=== PATIENT | male | born 1955 | race Caucasian/White ===

== ENCOUNTER → 2020-09-05 | Outpatient (CLI) | payer OTHER ==
[~2020-09-05] MED LIST: LISI-538 PO; ROSU20TA5 PO; [UNRECOGNIZED DRUG - CODE] PO
== END ==
LOC: M LABSMTC 11:32
PROVIDERS: ATTEND Anesthesiology
DX: Z01.812 Encounter for preprocedural laboratory examination (principal); Z20.828 Contact with and (suspected) exposure to other viral communicable diseases

== ENCOUNTER 2020-09-09 06:43 | Day surgery (SDC) | payer OTHER ==
[~2020-09-09] VITALS: Ht 172.7 cm; Wt 83.5 kg
[2020-09-09] MEDS ORDERED: NS 1,000 ML IV ONE (07:00)
[2020-09-09] MEDS ORDERED: propofoL 200 MG/20 ML VIAL As Ordered ONE (07:03)
[2020-09-09] MEDS ORDERED: LIDOCAINE 2% 100MG/5ML SDV (FOR ANES.) As Ordered ONE (07:03)
[2020-09-09] MEDS ORDERED: LISI40TA PO (07:20)
[2020-09-09] MEDS ORDERED: AMLO1TAB24 PO (07:22)
[2020-09-09] MEDS ORDERED: LABETALOL 100MG/20ML VIAL As Ordered ONE (07:45)
--- NOTE | 2020-09-09 07:56 | ROOR ---
Patient Name: Siva Benoit Procedure Date: 09/09/2020 7:33 AM Date of : 1955 Age: 64 Room: [facility] Gender: Male Note Status: Finalized Procedure: Total Colonoscopy to Cecum Indications: Screening for colorectal malignant neoplasm Providers: Fabián Gagnon MD Referring MD: AUSTYN METZGER Requesting Provider: Medicines: Monitored Anesthesia Care Complications: No immediate complications. Procedure: Pre-Anesthesia Assessment: - The heart rate, respiratory rate, oxygen saturations, blood pressure, adequacy of pulmonary ventilation, and response to care were monitored throughout the procedure. The Colonoscope was introduced through the anus and advanced to the cecum, identified by appendiceal orifice and ileocecal valve. The colonoscopy was performed without difficulty. The patient tolerated the procedure well. The quality of the bowel preparation was excellent. Findings: The perianal and digital rectal examinations were normal. Non-bleeding internal hemorrhoids were found during retroflexion. The hemorrhoids were small and Grade I (internal hemorrhoids that do not prolapse). No other significant abnormalities were identified in a careful examination of the remainder of the colon. The exam was otherwise without abnormality on direct and retroflexion views. Impression: - Non-bleeding internal hemorrhoids. - The examination was otherwise normal on direct and retroflexion views. - No specimens collected. - The exam was otherwise normal to the cecum. Recommendation: - Patient has a contact number available for emergencies. The signs and symptoms of potential delayed complications were discussed with the patient. Return to normal activities tomorrow. Written discharge instructions were provided to the patient. - High fiber diet. - Discharge patient to home. - Continue present medications. - Repeat colonoscopy in 10 years for screening purposes. - Return to referring physician. - The findings and recommendations were discussed with the patient. Procedure Code(s): --- Professional --- 50621, Colonoscopy, flexible; diagnostic, including collection of specimen(s) by brushing or washing, when performed (separate procedure) Diagnosis Code(s): --- Professional --- Z12.11, Encounter for screening for malignant neoplasm of colon K64.0, First degree hemorrhoids CPT copyright 2019 [employer]. All rights reserved. The codes documented in this report are preliminary and upon test cell technician review may be revised to meet current compliance requirements. Fabián Gagnon MD Fabián Gagnon MD 09/09/2020 7:55:43 AM Electronically signed by Fabián Gagnon MD Number of Addenda: 0 Note Initiated On: 09/09/2020 7:33 AM Estimated Blood Loss: Estimated blood loss: none.
== END 2020-09-09 08:40 | disposition home or self-care (01) ==
LOC: M OPP 06:43
PROVIDERS: ATTEND Internal Medicine Gastroenterology
DX: Z12.11 Encounter for screening for malignant neoplasm of colon (principal); K64.0 First degree hemorrhoids; I10 Essential (primary) hypertension; E78.5 Hyperlipidemia, unspecified; R12 Heartburn; Z86.718 Personal history of other venous thrombosis and embolism; Z86.59 Personal history of other mental and behavioral disorders; Z91.040 Latex allergy status; Z79.82 Long term (current) use of aspirin; Z79.899 Other long term (current) drug therapy

== ENCOUNTER → 2021-11-19 | Outpatient (CLI) | payer MEDICARE, OTHER ==
[~2021-11-19] MED LIST changes: +AMLO1TAB24 PO; -LISI-538 PO; +LISI20TA33 PO; +LISI40TA4 PO
[2021-11-19 15:33] LABS: BLOOD UREA NITROGEN 17 MG/DL (7-18); CALCIUM LEVEL 9.2 MG/DL (8.8-10.2); CARBON DIOXIDE LEVEL 25 MEQ/L (21-32); CHLORIDE LEVEL 103 MEQ/L (98-107); CREATININE FOR GFR 0.99 MG/DL (0.70-1.30); GLOMERULAR FILTRATION RATE > 60.0 (>49); GLUCOSE, FASTING 97 MG/DL (70-100); POTASSIUM SERUM 4.6 MEQ/L (3.5-5.1); SODIUM LEVEL 132 MEQ/L (136-145)
== END ==
LOC: M LAB 13:55
PROVIDERS: ATTEND Physician Assistant
DX: I65.22 Occlusion and stenosis of left carotid artery (principal); E87.5 Hyperkalemia

== ENCOUNTER → 2022-02-18 | Outpatient (CLI) | payer MEDICARE, OTHER ==
[2022-02-18 12:39] LABS: BLOOD UREA NITROGEN 14 MG/DL (7-18); CREATININE FOR GFR 0.96 MG/DL (0.70-1.30); GLOMERULAR FILTRATION RATE > 60.0 (>49)
== END ==
LOC: M LAB 11:32
PROVIDERS: ATTEND Surgery Vascular Surgery
DX: I65.23 Occlusion and stenosis of bilateral carotid arteries (principal)

== ENCOUNTER → 2022-02-23 | Outpatient (CLI) | payer MEDICARE, OTHER ==
[~2022-02-23] MED LIST changes: +ISOVUE-370 76% 100ML VIAL As Ordered ONE
== END ==
LOC: M RAD 10:18
PROVIDERS: ATTEND Physician Assistant
DX: I65.23 Occlusion and stenosis of bilateral carotid arteries (principal)
CPT/HCPCS: 70498; Q9967

== ENCOUNTER 2022-03-28 11:25 | Emergency (ER) | payer MEDICARE, OTHER ==
[~2022-03-28] VITALS: Ht 172.7 cm; Wt 81.0 kg
[~2022-03-28 11:25] MED LIST changes: -ISOVUE-370 76% 100ML VIAL As Ordered ONE
[2022-03-28 12:08] LABS: BASO % 0.6 % (0.0-1.0); EOS # 0.1 10^3/uL (0.0-0.5); HEMATOCRIT 34.4 % (42.0-52.0); HEMOGLOBIN 11.5 g/dl (13.5-17.5); LYMPH # 1.1 10^3/uL (1.5-5.0); LYMPH % 14.8 % (24.0-44.0); MEAN CORPUSCULAR HEMOGLOBIN 29.6 pg (27.0-33.0); MEAN CORPUSCULAR HGB CONC 33.4 g/dl (32.0-36.5); MEAN CORPUSCULAR VOLUME 88.7 fl (80.0-96.0); MONO # 0.7 10^3/uL (0.0-0.8); MONO % 9.9 % (2.0-8.0); NEUTROPHILS # 5.2 10^3/uL (1.5-8.5); NEUTROPHILS % 73.6 % (36.0-66.0); PLATELET COUNT, AUTOMATED 236 10^3/uL (150-450); RED BLOOD COUNT 3.88 10^6/uL (4.30-6.10); WHITE BLOOD COUNT 7.1 10^3/uL (4.0-10.0)
[2022-03-28 12:19] LABS: INR 0.91; PROTHROMBIN TIME 12.6 SECONDS (12.7-14.5)
[2022-03-28 12:20] LABS: PARTIAL THROMBOPLASTIN TIME 28.4 SECONDS (25.9-37.0)
[2022-03-28 12:38] LABS: MB/CK RELATIVE INDEX 1.27 (< OR =4)
[2022-03-28] MEDS ORDERED: METO1TAB87 PO (12:45)
[2022-03-28] MEDS ORDERED: CLOP75TA2 PO (12:45)
[2022-03-28 12:46] LABS: ALBUMIN 3.9 GM/DL (3.2-5.2); ALT/SGPT 29 U/L (12-78); BILIRUBIN,DIRECT 0.1 MG/DL (0.0-0.2); BILIRUBIN,TOTAL 0.5 MG/DL (0.2-1.0); BLOOD UREA NITROGEN 12 MG/DL (7-18); CALCIUM LEVEL 9.4 MG/DL (8.8-10.2); CARBON DIOXIDE LEVEL 21 MEQ/L (21-32); CHLORIDE LEVEL 103 MEQ/L (98-107); CREATININE FOR GFR 0.96 MG/DL (0.70-1.30); FREE T4 1.05 NG/DL (0.76-1.46); GLOMERULAR FILTRATION RATE > 60.0 (>49); GLUCOSE, FASTING 114 MG/DL (70-100); LIPASE 186 U/L (73-393); NT-PRO BNP 310 PG/ML (<125); POTASSIUM SERUM 4.5 MEQ/L (3.5-5.1); SODIUM LEVEL 133 MEQ/L (136-145)
[2022-03-28] MEDS ORDERED: hydrALAZINE 20MG/ML 1ML VIAL (J0360 PER 20MG) IV STA (14:37)
[2022-03-28] MEDS ORDERED: FUROSEMIDE 40MG/4ML VIAL (J1940) IV ONE (15:30)
[2022-03-28] MEDS ORDERED: **hydrALAZINE HCL** 25 MG TAB PO ONE (15:30)
[2022-03-28 15:53] VITALS: BP 196/88
[2022-03-28 16:46] VITALS: BP 150/73
[2022-03-28] MEDS ORDERED: HYDR-3490 PO (16:46)
== END 2022-03-28 17:06 | disposition home or self-care (01) ==
LOC: EDBD 11:25 → M ED 11:25
DX: I10 Essential (primary) hypertension (principal); I25.10 Atherosclerotic heart disease of native coronary artery without angina pectoris; Z79.82 Long term (current) use of aspirin; Z79.899 Other long term (current) drug therapy; Z91.040 Latex allergy status
CPT/HCPCS: 71045; 80048; 80076; 82550; 82553; 83690; 83880; 84439; 84443; 84484; 85025; 85610; 85730; 93005; 93971; 96374; 96375; 99285; J0360; J1940

== ENCOUNTER → 2022-04-08 | Outpatient (CLI) | payer MEDICARE, OTHER ==
[~2022-04-08] MED LIST changes: +CLOP75TA2 PO; +HYDR-3490 PO; +METO1TAB87 PO
[2022-04-08 12:28] LABS: BASO # 0.1 10^3/uL (0.0-0.2); BASO % 0.6 % (0.0-1.0); EOS % 0.3 % (0.0-3.0); HEMATOCRIT 33.7 % (42.0-52.0); HEMOGLOBIN 12.1 g/dl (13.5-17.5); LYMPH # 0.9 10^3/uL (1.5-5.0); LYMPH % 10.1 % (24.0-44.0); MEAN CORPUSCULAR HEMOGLOBIN 29.7 pg (27.0-33.0); MEAN CORPUSCULAR HGB CONC 35.9 g/dl (32.0-36.5); MEAN CORPUSCULAR VOLUME 82.8 fl (80.0-96.0); MONO # 1.2 10^3/uL (0.0-0.8); MONO % 13.7 % (2.0-8.0); NEUTROPHILS # 6.7 10^3/uL (1.5-8.5); NEUTROPHILS % 74.6 % (36.0-66.0); PLATELET COUNT, AUTOMATED 291 10^3/uL (150-450); RED BLOOD COUNT 4.07 10^6/uL (4.30-6.10); WHITE BLOOD COUNT 8.9 10^3/uL (4.0-10.0)
[2022-04-08 12:45] LABS: INR 0.95; PROTHROMBIN TIME 13.1 SECONDS (12.7-14.5)
[2022-04-08 12:46] LABS: PARTIAL THROMBOPLASTIN TIME 31.1 SECONDS (25.9-37.0)
[2022-04-08 14:07] LABS: BLOOD UREA NITROGEN 18 MG/DL (7-18); CALCIUM LEVEL 9.1 MG/DL (8.8-10.2); CARBON DIOXIDE LEVEL 25 MEQ/L (21-32); CHLORIDE LEVEL 84 MEQ/L (98-107); CREATININE FOR GFR 1.09 MG/DL (0.70-1.30); GLOMERULAR FILTRATION RATE > 60.0 (>49); GLUCOSE, FASTING 93 MG/DL (70-100); SODIUM LEVEL 118 MEQ/L (136-145)
== END ==
LOC: M LAB 11:14
PROVIDERS: ATTEND Surgery Vascular Surgery
DX: I65.22 Occlusion and stenosis of left carotid artery (principal)

== ENCOUNTER → 2022-04-13 | Outpatient (CLI) | payer MEDICARE, OTHER ==
[2022-04-13 12:13] LABS: BLOOD UREA NITROGEN 8 MG/DL (7-18); CALCIUM LEVEL 8.6 MG/DL (8.8-10.2); CARBON DIOXIDE LEVEL 24 MEQ/L (21-32); CHLORIDE LEVEL 97 MEQ/L (98-107); CREATININE FOR GFR 0.84 MG/DL (0.70-1.30); GLOMERULAR FILTRATION RATE > 60.0 (>49); GLUCOSE, FASTING 102 MG/DL (70-100); POTASSIUM SERUM 4.2 MEQ/L (3.5-5.1); SODIUM LEVEL 128 MEQ/L (136-145)
== END ==
LOC: M LAB 10:07
PROVIDERS: ATTEND Surgery Vascular Surgery
DX: Z01.818 Encounter for other preprocedural examination (principal)

== ENCOUNTER → 2022-04-17 | Outpatient (CLI) | payer MEDICARE, OTHER | LOC: M LABSMTC 09:17 | PROVIDERS: ATTEND Surgery Vascular Surgery | DX: Z20.822 Contact with and (suspected) exposure to COVID-19 (principal) ==

== ENCOUNTER 2022-07-21 10:57 | Inpatient (IN) | payer MEDICARE, OTHER ==
[~2022-07-21] VITALS: Ht 172.7 cm; Wt 76.8 kg
[2022-07-21 12:25] LABS: BASO % 0.8 % (0.0-1.0); EOS # 0.1 10^3/uL (0.0-0.5); HEMATOCRIT 27.5 % (42.0-52.0); HEMOGLOBIN 9.7 g/dl (13.5-17.5); LYMPH # 0.9 10^3/uL (1.5-5.0); LYMPH % 17.4 % (24.0-44.0); MEAN CORPUSCULAR HEMOGLOBIN 29.7 pg (27.0-33.0); MEAN CORPUSCULAR HGB CONC 35.3 g/dl (32.0-36.5); MEAN CORPUSCULAR VOLUME 84.1 fl (80.0-96.0); MONO # 0.7 10^3/uL (0.0-0.8); MONO % 14.4 % (2.0-8.0); NEUTROPHILS # 3.2 10^3/uL (1.5-8.5); PLATELET COUNT, AUTOMATED 273 10^3/uL (150-450); RED BLOOD COUNT 3.27 10^6/uL (4.30-6.10)
[2022-07-21 12:38] LABS: INR 0.91; PROTHROMBIN TIME 12.5 SECONDS (12.5-14.5)
[2022-07-21 13:15] LABS: BLOOD UREA NITROGEN 18 MG/DL (9-23); CALCIUM LEVEL 9.3 MG/DL (8.3-10.6); CARBON DIOXIDE LEVEL 22 MMOL/L (20-31); CHLORIDE LEVEL 86 MMOL/L (98-107); CK-MB VALUE MASS 2.7 NG/ML (<3.6); CPK CREATINE PHOSPHOKINASE 198 U/L (46-171); CREATININE FOR GFR 1.07 MG/DL (0.70-1.30); ETHYL ALCOHOL (ETHANOL) 0.003 % (0.000-0.010); GLOMERULAR FILTRATION RATE > 60.0 (>49); GLUCOSE, FASTING 104 MG/DL (74-106); MAGNESIUM LEVEL 1.6 MG/DL (1.8-2.4); MB/CK RELATIVE INDEX 1.36 (< OR =4); POTASSIUM SERUM 3.6 MMOL/L (3.5-5.1); SODIUM LEVEL 118 MMOL/L (136-145); THYROID STIMULATING HORMONE 2.902 uIU/ML (0.55-4.78)
[2022-07-21 14:14] LABS: CK-MB VALUE MASS 4.1 NG/ML (<3.6); MB/CK RELATIVE INDEX 2.07 (< OR =4)
[2022-07-21] MEDS ORDERED: MAG SULF 1GM/100ML (MAG RUN) 1 GM in IV 1 EA IV ONE (18:15)
[2022-07-21] MEDS ORDERED: MAALOX 30 ML SUSP *UDC PO PRN (18:15)
[2022-07-21] MEDS ORDERED: MOM 30ML SUSPENSION UDC PO PRN (18:15)
[2022-07-21] MEDS ORDERED: FUROSEMIDE 40MG/4ML VIAL (J1940) IV ONE (18:30)
[2022-07-21] MEDS ORDERED: ISOVUE-370 76% 100ML VIAL As Ordered ONE (18:59)
[2022-07-21] MEDS ORDERED: ACET500T15 PO (19:27)
[2022-07-21] MEDS ORDERED: ASPI81TA26 PO (19:27)
[2022-07-21] MEDS ORDERED: ROSU40TA4 PO (19:27)
[2022-07-21] MEDS ORDERED: VITMTA PO (19:27)
[2022-07-21] MEDS ORDERED: HYDR-3490 PO (19:27)
[2022-07-21] MEDS ORDERED: HOME MED LIST COMPLETE! XX SCH (19:30)
[2022-07-21] MEDS: METOPROLOL TART 25 MG TABLET PO SCH (21:00)
[2022-07-21 21:08] LABS: BLOOD UREA NITROGEN 15 MG/DL (9-23); CALCIUM LEVEL 9.7 MG/DL (8.3-10.6); CARBON DIOXIDE LEVEL 23 MMOL/L (20-31); CHLORIDE LEVEL 88 MMOL/L (98-107); CREATININE FOR GFR 0.89 MG/DL (0.70-1.30); GLOMERULAR FILTRATION RATE > 60.0 (>49); GLUCOSE, FASTING 107 MG/DL (74-106); POTASSIUM SERUM 3.3 MMOL/L (3.5-5.1); SODIUM LEVEL 122 MMOL/L (136-145)
[2022-07-21 21:23] LABS: AMPHETAMINES LEVEL URINE NEGATIVE (NEGATIVE); BARBITURATES URINE NEGATIVE (NEGATIVE); BENZODIAZEPINES URINE NEGATIVE (NEGATIVE); CANNABINOIDS URINE NEGATIVE (NEGATIVE); COCAINE METABOLITE URINE NEGATIVE (NEGATIVE); METHADONE URINE NEGATIVE (NEGATIVE); OPIATES URINE NEGATIVE (NEGATIVE); PHENCYCLIDINE URINE NEGATIVE (NEGATIVE)
[2022-07-21] MEDS: DOCUSATE SODIUM 100MG CAPSULE PO SCH (21:25)
[2022-07-21] MEDS: guaiFENesin ER 600 MG TAB PO SCH (21:25)
[2022-07-21] MEDS: ACETAMINOPHEN TAB 650MG DOSE (2X325MG) PO PRN (21:34)
[2022-07-22 01:43] LABS: CREATININE,RANDOM URINE 23.7 MG/DL; POTASSIUM RANDOM URINE 9.9 MMOL/L
[2022-07-22 01:44] LABS: BLOOD UREA NITROGEN 20 MG/DL (9-23); CARBON DIOXIDE LEVEL 26 MMOL/L (20-31); CHLORIDE LEVEL 87 MMOL/L (98-107); GLOMERULAR FILTRATION RATE > 60.0 (>49); GLUCOSE, FASTING 114 MG/DL (74-106); POTASSIUM SERUM 3.7 MMOL/L (3.5-5.1); SODIUM LEVEL 124 MMOL/L (136-145)
[2022-07-22 04:54] VITALS: BP 162/70
[2022-07-22] MEDS: HEPARIN SOD (PORCINE) 5000UNITS/ML 1ML VIAL/SYRINGE SC SCH ×3 (05:43→21:01)
[2022-07-22 07:25] LABS: BASO # 0.1 10^3/uL (0.0-0.2); EOS # 0.1 10^3/uL (0.0-0.5); EOS % 1.2 % (0.0-3.0); HEMATOCRIT 31.7 % (42.0-52.0); HEMOGLOBIN 10.9 g/dl (13.5-17.5); LYMPH # 0.8 10^3/uL (1.5-5.0); LYMPH % 15.3 % (24.0-44.0); MEAN CORPUSCULAR HEMOGLOBIN 29.6 pg (27.0-33.0); MEAN CORPUSCULAR HGB CONC 34.4 g/dl (32.0-36.5); MEAN CORPUSCULAR VOLUME 86.1 fl (80.0-96.0); MONO # 0.7 10^3/uL (0.0-0.8); MONO % 14.9 % (2.0-8.0); NEUTROPHILS # 3.4 10^3/uL (1.5-8.5); NEUTROPHILS % 67.4 % (36.0-66.0); PLATELET COUNT, AUTOMATED 286 10^3/uL (150-450); RED BLOOD COUNT 3.68 10^6/uL (4.30-6.10)
[2022-07-22 07:45] VITALS: BP 130/69
[2022-07-22 08:13] LABS: BLOOD UREA NITROGEN 17 MG/DL (9-23); CALCIUM LEVEL 9.8 MG/DL (8.3-10.6); CARBON DIOXIDE LEVEL 25 MMOL/L (20-31); CHLORIDE LEVEL 90 MMOL/L (98-107); CREATININE FOR GFR 0.94 MG/DL (0.70-1.30); GLOMERULAR FILTRATION RATE > 60.0 (>49); GLUCOSE, FASTING 111 MG/DL (74-106); POTASSIUM SERUM 3.5 MMOL/L (3.5-5.1); SODIUM LEVEL 126 MMOL/L (136-145)
[2022-07-22] MEDS: CLOPIDOGREL 75 MG TAB PO SCH (08:32)
[2022-07-22] MEDS: guaiFENesin ER 600 MG TAB PO SCH ×2 (08:32→20:59)
[2022-07-22] MEDS: DOCUSATE SODIUM 100MG CAPSULE PO SCH ×2 (08:33→20:59)
[2022-07-22] MEDS: METOPROLOL TART 25 MG TABLET PO SCH ×2 (08:33→20:59)
[2022-07-22] MEDS: ROSUVASTATIN 10 MG TAB (CRESTOR) PO SCH (08:33)
[2022-07-22] MEDS: ASPIRIN 81MG ENTERIC TABLET PO SCH (08:33)
[2022-07-22] MEDS ORDERED: FUROSEMIDE 40MG/4ML VIAL (J1940) IV SCH (09:00)
[2022-07-22 11:28] VITALS: BP 113/57
[2022-07-22 12:45] LABS: BLOOD UREA NITROGEN 15 MG/DL (9-23); CALCIUM LEVEL 10.1 MG/DL (8.3-10.6); CARBON DIOXIDE LEVEL 28 MMOL/L (20-31); CHLORIDE LEVEL 88 MMOL/L (98-107); CREATININE FOR GFR 0.94 MG/DL (0.70-1.30); GLOMERULAR FILTRATION RATE > 60.0 (>49); GLUCOSE, FASTING 140 MG/DL (74-106); POTASSIUM SERUM 3.2 MMOL/L (3.5-5.1); SODIUM LEVEL 126 MMOL/L (136-145)
[2022-07-22] MEDS ORDERED: FUROSEMIDE 40MG/4ML VIAL (J1940) IV ONE (13:00)
[2022-07-22] MEDS: TORSEMIDE 20 MG TAB PO SCH (13:05)
[2022-07-22] MEDS ORDERED: POTASSIUM CHLORIDE 10MEQ SR TABLET PO ONE ×2 (14:30→17:00)
[2022-07-22 15:49] VITALS: BP 158/69
[2022-07-22] MEDS ORDERED: ISOVUE-370 76% 100ML VIAL As Ordered ONE (17:39)
[2022-07-22 19:11] LABS: BLOOD UREA NITROGEN 21 MG/DL (9-23); CALCIUM LEVEL 9.2 MG/DL (8.3-10.6); CARBON DIOXIDE LEVEL 27 MMOL/L (20-31); CHLORIDE LEVEL 85 MMOL/L (98-107); CREATININE FOR GFR 1.14 MG/DL (0.70-1.30); GLOMERULAR FILTRATION RATE > 60.0 (>49); GLUCOSE, FASTING 137 MG/DL (74-106); POTASSIUM SERUM 3.6 MMOL/L (3.5-5.1); SODIUM LEVEL 123 MMOL/L (136-145)
[2022-07-22 20:15] VITALS: BP 151/75
[2022-07-22] MEDS: ACETAMINOPHEN TAB 650MG DOSE (2X325MG) PO PRN (23:49)
[2022-07-23 00:30] VITALS: BP 129/63
[2022-07-23 00:57] LABS: BLOOD UREA NITROGEN 22 MG/DL (9-23); CALCIUM LEVEL 9.3 MG/DL (8.3-10.6); CARBON DIOXIDE LEVEL 27 MMOL/L (20-31); CHLORIDE LEVEL 87 MMOL/L (98-107); CREATININE FOR GFR 1.08 MG/DL (0.70-1.30); GLOMERULAR FILTRATION RATE > 60.0 (>49); GLUCOSE, FASTING 127 MG/DL (74-106); POTASSIUM SERUM 3.6 MMOL/L (3.5-5.1); SODIUM LEVEL 125 MMOL/L (136-145)
[2022-07-23 04:02] VITALS: BP 120/56
[2022-07-23] MEDS: HEPARIN SOD (PORCINE) 5000UNITS/ML 1ML VIAL/SYRINGE SC SCH ×3 (05:26→21:42)
[2022-07-23 05:53] LABS: BASO % 0.4 % (0.0-1.0); EOS % 0.5 % (0.0-3.0); HEMOGLOBIN 10.9 g/dl (13.5-17.5); LYMPH # 0.9 10^3/uL (1.5-5.0); LYMPH % 11.5 % (24.0-44.0); MEAN CORPUSCULAR HEMOGLOBIN 29.3 pg (27.0-33.0); MEAN CORPUSCULAR HGB CONC 34.1 g/dl (32.0-36.5); MONO # 1.1 10^3/uL (0.0-0.8); MONO % 14.4 % (2.0-8.0); NEUTROPHILS # 5.6 10^3/uL (1.5-8.5); NEUTROPHILS % 72.8 % (36.0-66.0); PLATELET COUNT, AUTOMATED 313 10^3/uL (150-450); RED BLOOD COUNT 3.72 10^6/uL (4.30-6.10); WHITE BLOOD COUNT 7.7 10^3/uL (4.0-10.0)
[2022-07-23 06:19] LABS: BLOOD UREA NITROGEN 25 MG/DL (9-23); CALCIUM LEVEL 9.5 MG/DL (8.3-10.6); CARBON DIOXIDE LEVEL 26 MMOL/L (20-31); CHLORIDE LEVEL 90 MMOL/L (98-107); CREATININE FOR GFR 1.17 MG/DL (0.70-1.30); GLOMERULAR FILTRATION RATE > 60.0 (>49); GLUCOSE, FASTING 121 MG/DL (74-106); MAGNESIUM LEVEL 1.8 MG/DL (1.8-2.4); POTASSIUM SERUM 3.9 MMOL/L (3.5-5.1); SODIUM LEVEL 127 MMOL/L (136-145)
[2022-07-23] MEDS: ASPIRIN 81MG ENTERIC TABLET PO SCH (09:27)
[2022-07-23] MEDS: ROSUVASTATIN 10 MG TAB (CRESTOR) PO SCH (09:27)
[2022-07-23] MEDS: DOCUSATE SODIUM 100MG CAPSULE PO SCH ×2 (09:27→21:40)
[2022-07-23] MEDS: TORSEMIDE 20 MG TAB PO SCH (09:28)
[2022-07-23] MEDS: CLOPIDOGREL 75 MG TAB PO SCH (09:29)
[2022-07-23] MEDS: guaiFENesin ER 600 MG TAB PO SCH ×2 (09:29→21:40)
[2022-07-23] MEDS: METOPROLOL TART 25 MG TABLET PO SCH ×2 (09:29→21:43)
[2022-07-23 13:08] LABS: CALCIUM LEVEL 9.6 MG/DL (8.3-10.6); CREATININE FOR GFR 1.35 MG/DL (0.70-1.30); GLOMERULAR FILTRATION RATE 56.1 (>49); POTASSIUM SERUM 3.9 MMOL/L (3.5-5.1)
[2022-07-23 16:18] VITALS: BP 138/65
[2022-07-23 19:14] LABS: BLOOD UREA NITROGEN 32 MG/DL (9-23); CALCIUM LEVEL 9.8 MG/DL (8.3-10.6); CARBON DIOXIDE LEVEL 25 MMOL/L (20-31); CHLORIDE LEVEL 90 MMOL/L (98-107); CREATININE FOR GFR 1.26 MG/DL (0.70-1.30); GLOMERULAR FILTRATION RATE > 60.0 (>49); GLUCOSE, FASTING 109 MG/DL (74-106); POTASSIUM SERUM 3.7 MMOL/L (3.5-5.1); SODIUM LEVEL 129 MMOL/L (136-145)
[2022-07-23 20:00] VITALS: BP 108/55
[2022-07-23] MEDS: ACETAMINOPHEN TAB 650MG DOSE (2X325MG) PO PRN (21:49)
[2022-07-24 00:35] LABS: CREATININE FOR GFR 1.52 MG/DL (0.70-1.30); GLOMERULAR FILTRATION RATE 48.9 (>49); POTASSIUM SERUM 3.8 MMOL/L (3.5-5.1)
[2022-07-24 04:00] VITALS: BP 152/68
[2022-07-24] MEDS: HEPARIN SOD (PORCINE) 5000UNITS/ML 1ML VIAL/SYRINGE SC SCH ×2 (05:42→15:15)
[2022-07-24 06:29] LABS: BASO % 0.7 % (0.0-1.0); EOS # 0.1 10^3/uL (0.0-0.5); EOS % 1.2 % (0.0-3.0); HEMATOCRIT 33.5 % (42.0-52.0); HEMOGLOBIN 11.2 g/dl (13.5-17.5); LYMPH # 1.1 10^3/uL (1.5-5.0); LYMPH % 17.6 % (24.0-44.0); MEAN CORPUSCULAR HEMOGLOBIN 29.4 pg (27.0-33.0); MEAN CORPUSCULAR HGB CONC 33.4 g/dl (32.0-36.5); MEAN CORPUSCULAR VOLUME 87.9 fl (80.0-96.0); MONO # 0.8 10^3/uL (0.0-0.8); MONO % 13.2 % (2.0-8.0); NEUTROPHILS # 4.1 10^3/uL (1.5-8.5); NEUTROPHILS % 66.8 % (36.0-66.0); PLATELET COUNT, AUTOMATED 320 10^3/uL (150-450); RED BLOOD COUNT 3.81 10^6/uL (4.30-6.10); WHITE BLOOD COUNT 6.1 10^3/uL (4.0-10.0)
[2022-07-24 07:13] LABS: CALCIUM LEVEL 9.6 MG/DL (8.3-10.6); CREATININE FOR GFR 1.41 MG/DL (0.70-1.30); GLOMERULAR FILTRATION RATE 53.4 (>49); MAGNESIUM LEVEL 1.9 MG/DL (1.8-2.4); POTASSIUM SERUM 4.1 MMOL/L (3.5-5.1)
[2022-07-24 08:00] VITALS: BP 125/58
[2022-07-24] MEDS ORDERED: TOLVAPTAN 7.5 MG HALF-TAB PO ONE (09:00)
[2022-07-24] MEDS: guaiFENesin ER 600 MG TAB PO SCH (09:35)
[2022-07-24] MEDS: DOCUSATE SODIUM 100MG CAPSULE PO SCH (09:35)
[2022-07-24 09:36] VITALS: BP 125/58
[2022-07-24] MEDS: TORSEMIDE 20 MG TAB PO SCH (09:36)
[2022-07-24] MEDS: METOPROLOL TART 25 MG TABLET PO SCH (09:36)
[2022-07-24] MEDS: ASPIRIN 81MG ENTERIC TABLET PO SCH (09:36)
[2022-07-24] MEDS: ROSUVASTATIN 10 MG TAB (CRESTOR) PO SCH (09:36)
[2022-07-24] MEDS: CLOPIDOGREL 75 MG TAB PO SCH (09:36)
[2022-07-24 15:13] LABS: CALCIUM LEVEL 10.5 MG/DL (8.3-10.6); CREATININE FOR GFR 1.29 MG/DL (0.70-1.30); GLOMERULAR FILTRATION RATE 59.1 (>49); POTASSIUM SERUM 4.5 MMOL/L (3.5-5.1)
[2022-07-24] MEDS ORDERED: MUCI600T31 PO (15:18)
[2022-07-24] MEDS ORDERED: TORS20TA2 PO (15:18)
== END 2022-07-24 16:21 | disposition home or self-care (01) | DRG 641 ==
LOC: M ED 10:57 → M ED INP 18:13 → M PCU 23:46
PROVIDERS: ADMIT Internal Medicine; ATTEND Internal Medicine
PROC: B246ZZZ Ultrasonography of Right and Left Heart (ICD-10-PCS; principal; 2022-07-21)
DX: E87.1 Hypo-osmolality and hyponatremia (principal); I13.0 Hypertensive heart and chronic kidney disease with heart failure and stage 1 through stage 4 chronic kidney disease, or unspecified chronic kidney disease; I25.10 Atherosclerotic heart disease of native coronary artery without angina pectoris; E87.20 Acidosis, unspecified; Z95.5 Presence of coronary angioplasty implant and graft; F32.A Depression, unspecified; K21.9 Gastro-esophageal reflux disease without esophagitis; R55 Syncope and collapse; E78.5 Hyperlipidemia, unspecified; Z90.79 Acquired absence of other genital organ(s); D64.9 Anemia, unspecified; Z20.822 Contact with and (suspected) exposure to COVID-19; Z79.899 Other long term (current) drug therapy; Z91.040 Latex allergy status; E83.42 Hypomagnesemia; E87.70 Fluid overload, unspecified; B34.8 Other viral infections of unspecified site; I50.9 Heart failure, unspecified; N18.9 Chronic kidney disease, unspecified; Z95.1 Presence of aortocoronary bypass graft

== ENCOUNTER → 2023-02-03 | Outpatient (CLI) | payer MEDICARE, OTHER ==
[~2023-02-03] MED LIST changes: +ACET500T15 PO; +ASPI81TA26 PO; +MUCI600T31 PO; +ROSU40TA4 PO; +TORS20TA2 PO; +VITMTA PO
== END ==
LOC: M RAD 08:22
PROVIDERS: ATTEND Surgery Vascular Surgery
DX: I65.23 Occlusion and stenosis of bilateral carotid arteries (principal)

== ENCOUNTER 2024-01-17 14:14 | Emergency (ER) | payer MEDICARE, OTHER ==
[~2024-01-17] VITALS: Ht 172.7 cm; Wt 80.0 kg
[~2024-01-17 14:14] MED LIST changes: -ROSU20TA5 PO; +ROSU20TA61 PO; -ROSU40TA4 PO; +ROSU40TA63 PO
[2024-01-17] MEDS ORDERED: EZET10TA21 PO (14:32)
[2024-01-17] MEDS ORDERED: METH-1164 PO (14:32)
[2024-01-17] MEDS ORDERED: VITA500C24 PO (14:32)
[2024-01-17] MEDS ORDERED: CALC500C14 PO (14:32)
[2024-01-17] MEDS ORDERED: GABA-284 PO (14:32)
[2024-01-17] MEDS ORDERED: BUME2TAB3 PO (14:32)
[2024-01-17] MEDS ORDERED: MM S100C PO (14:32)
[2024-01-17] MEDS ORDERED: OXYC-1 PO (14:32)
[2024-01-17] MEDS ORDERED: FERR324T21 PO (14:32)
[2024-01-17] MEDS ORDERED: FINA5TAB2 PO (14:32)
[2024-01-17 16:33] LABS: BASO # 0.1 10^3/uL (0.0-0.2); BASO % 0.8 % (0.0-1.0); EOS # 0.1 10^3/uL (0.0-0.5); EOS % 1.3 % (0.0-3.0); HEMATOCRIT 31.8 % (42.0-52.0); HEMOGLOBIN 10.2 g/dl (13.5-17.5); LYMPH # 1.1 10^3/uL (1.5-5.0); LYMPH % 16.7 % (24.0-44.0); MEAN CORPUSCULAR HEMOGLOBIN 28.2 pg (27.0-33.0); MEAN CORPUSCULAR HGB CONC 32.1 g/dl (32.0-36.5); MEAN CORPUSCULAR VOLUME 87.8 fl (80.0-96.0); MONO # 0.6 10^3/uL (0.0-0.8); MONO % 9.4 % (2.0-8.0); NEUTROPHILS # 4.5 10^3/uL (1.5-8.5); NEUTROPHILS % 71.5 % (36.0-66.0); RED BLOOD COUNT 3.62 10^6/uL (4.30-6.10); WHITE BLOOD COUNT 6.3 10^3/uL (4.0-10.0)
[2024-01-17 16:49] LABS: ERYTHROCYTE SEDIMENTATION RATE 56 mm/hr (0-20)
[2024-01-17 16:56] LABS: C REACTIVE PROTEIN QUANTITATIV 0.4 MG/DL (<1.0)
[2024-01-17 17:04] LABS: PROCALCITONIN 0.08 ng/ml
[2024-01-17 18:12] VITALS: BP 163/87; TEMP 98.3; O2SAT 100
== END 2024-01-17 18:16 | disposition home or self-care (01) ==
LOC: M ED 14:14
DX: M79.604 Pain in right leg (principal); Z89.511 Acquired absence of right leg below knee; E11.9 Type 2 diabetes mellitus without complications; I10 Essential (primary) hypertension; F32.A Depression, unspecified; Z79.899 Other long term (current) drug therapy

== ENCOUNTER 2024-06-04 14:59 | Emergency (ER) | payer MEDICARE, OTHER ==
[~2024-06-04] VITALS: Ht 172.7 cm; Wt 79.5 kg
[~2024-06-04 14:59] MED LIST changes: +BUME2TAB3 PO; +CALC500C14 PO; +EZET10TA21 PO; +FERR324T21 PO; +FINA5TAB2 PO; +GABA-284 PO; +METH-1164 PO; +MM S100C PO; +OXYC-1 PO; -ROSU20TA61 PO; +ROSU20TA86 PO; -ROSU40TA63 PO; +ROSU40TA81 PO; +VITA500C24 PO
[2024-06-04 15:07] VITALS: O2SAT 98
[2024-06-04] MEDS: ACETAMINOPHEN 325 MG TAB PO ONE (16:43)
[2024-06-04 18:03] VITALS: BP 148/92; TEMP 98.2
== END 2024-06-04 19:15 | disposition home or self-care (01) ==
LOC: M ED 14:59 → EDBD 14:59 → M ED 19:15
DX: S00.93XA Contusion of unspecified part of head, initial encounter (principal); Y92.810 Car as the place of occurrence of the external cause; Y93.9 Activity, unspecified; Y99.9 Unspecified external cause status; I10 Essential (primary) hypertension; Z95.1 Presence of aortocoronary bypass graft; Z91.040 Latex allergy status; Z79.1 Long term (current) use of non-steroidal anti-inflammatories (NSAID); Z79.899 Other long term (current) drug therapy

== ENCOUNTER → 2024-06-05 | Outpatient (CLI) | payer MEDICARE, OTHER | LOC: M RAD 09:51 | PROVIDERS: ATTEND Physician Assistant | DX: I65.22 Occlusion and stenosis of left carotid artery (principal); Z95.828 Presence of other vascular implants and grafts ==

== ENCOUNTER 2024-08-14 14:08 | Emergency (ER) | payer MEDICARE, OTHER ==
[~2024-08-14] VITALS: Ht 172.7 cm; Wt 76.4 kg
[2024-08-14 14:54] LABS: BASO # 0.1 10^3/uL (0.0-0.2); BASO % 0.4 % (0.0-1.0); EOS % 0.2 % (0.0-3.0); HEMATOCRIT 34.9 % (42.0-52.0); HEMOGLOBIN 11.6 g/dl (13.5-17.5); LYMPH # 0.9 10^3/uL (1.5-5.0); LYMPH % 6.9 % (24.0-44.0); MEAN CORPUSCULAR HEMOGLOBIN 29.6 pg (27.0-33.0); MEAN CORPUSCULAR HGB CONC 33.2 g/dl (32.0-36.5); MONO # 0.8 10^3/uL (0.0-0.8); MONO % 6.2 % (2.0-8.0); NEUTROPHILS % 85.9 % (36.0-66.0); PLATELET COUNT, AUTOMATED 193 10^3/uL (150-450); RED BLOOD COUNT 3.92 10^6/uL (4.30-6.10); WHITE BLOOD COUNT 12.9 10^3/uL (4.0-10.0)
[2024-08-14 15:00] LABS: ERYTHROCYTE SEDIMENTATION RATE 88 mm/hr (0-20)
[2024-08-14 15:12] LABS: BLOOD UREA NITROGEN 26 MG/DL (9-23); C REACTIVE PROTEIN QUANTITATIV 13.68 MG/DL (<1.0); CALCIUM LEVEL 9.1 MG/DL (8.3-10.6); CARBON DIOXIDE LEVEL 25 MMOL/L (20-31); CHLORIDE LEVEL 99 MMOL/L (98-107); CREATININE FOR GFR 1.21 MG/DL (0.70-1.30); GLOMERULAR FILTRATION RATE > 60.0 (>49); GLUCOSE, FASTING 140 MG/DL (74-106); POTASSIUM SERUM 3.1 MMOL/L (3.5-5.1); SODIUM LEVEL 135 MMOL/L (136-145)
[2024-08-14 15:25] LABS: PROCALCITONIN 0.59 ng/ml
[2024-08-14] MEDS: POTASSIUM CHLORIDE 10MEQ SR TABLET PO ONE (16:06)
[2024-08-14] MEDS: CEFEPIME HCL 2 GM in DEXTROSE 5% (D5W) ADV/MINI-BAG 50 ML IV ONE (16:06)
[2024-08-14] MEDS ORDERED: ISOVUE-370 76% 100ML VIAL As Ordered ONE (16:38)
[2024-08-14] MEDS ORDERED: GABA-1172 PO (16:41)
[2024-08-14] MEDS ORDERED: HOME MED LIST COMPLETE! XX SCH (16:50)
[2024-08-14 21:28] VITALS: BP 190/91
[2024-08-14] MEDS: METOPROLOL TART 25 MG TABLET PO ONE (21:28)
[2024-08-14] MEDS: GABAPENTIN 300 MG CAP PO SCH (22:21)
[2024-08-14] MEDS: cefTRIAXone SOD 1 GM in DEXTROSE 5% (D5W) ADV/MINI-BAG 50 ML IV SCH (22:21)
[2024-08-14] MEDS: ACETAMINOPHEN 500 MG TAB PO PRN (22:24)
[2024-08-15 00:34] VITALS: BP 155/62; TEMP 98; O2SAT 96
[2024-08-15] MEDS ORDERED: CLOPIDOGREL 75 MG TAB PO SCH (09:00)
[2024-08-15] MEDS ORDERED: ASCORBIC ACID 500 MG TAB PO SCH (09:00)
[2024-08-15] MEDS ORDERED: ASPIRIN 81MG ENTERIC TABLET PO SCH (09:00)
[2024-08-15] MEDS ORDERED: HEPARIN SOD (PORCINE) 5000UNITS/ML 1ML VIAL/SYRINGE SQ SCH (09:00)
[2024-08-15] MEDS ORDERED: PANTOPRAZOLE 40MG TAB (PROTONIX) PO SCH (09:00)
[2024-08-15] MEDS ORDERED: BUMETANIDE 1 MG TAB PO SCH (09:00)
[2024-08-15] MEDS ORDERED: METOPROLOL TART 25 MG TABLET PO SCH (09:00)
[2024-08-15] MEDS ORDERED: FINASTERIDE 5MG TAB PO SCH (09:00)
[2024-08-15] MEDS ORDERED: EZETIMIBE 10MG TABLET (ZETIA) PO SCH (12:00)
[2024-08-15] MEDS ORDERED: ROSUVASTATIN 10 MG TAB (CRESTOR) PO SCH (12:00)
== END 2024-08-15 00:58 | disposition short-term general hospital (02) ==
LOC: M ED 14:08 → EDBD 14:08 → M ED 08-15 00:58
DX: L03.115 Cellulitis of right lower limb (principal); Z89.511 Acquired absence of right leg below knee; I25.10 Atherosclerotic heart disease of native coronary artery without angina pectoris; I10 Essential (primary) hypertension; D64.9 Anemia, unspecified; K21.9 Gastro-esophageal reflux disease without esophagitis; E78.5 Hyperlipidemia, unspecified; Z95.1 Presence of aortocoronary bypass graft; K76.0 Fatty (change of) liver, not elsewhere classified; I70.212 Atherosclerosis of native arteries of extremities with intermittent claudication, left leg; I70.92 Chronic total occlusion of artery of the extremities; I77.4 Celiac artery compression syndrome; F32.A Depression, unspecified; Z79.82 Long term (current) use of aspirin; Z79.899 Other long term (current) drug therapy; Z91.040 Latex allergy status
CPT/HCPCS: 71045; 75635; 80048; 83605; 84145; 85025; 85652; 86140; 87040; 93005; 93041; 94760; 96374; 96376; 99285; J0692; J0696; Q9967

== ENCOUNTER 2025-01-15 07:01 | Day surgery (SDC) | payer MEDICARE, OTHER ==
[~2025-01-15] VITALS: Ht 170.2 cm; Wt 75.0 kg
[~2025-01-15 07:01] MED LIST changes: +AMLO2.5T3 PO; +DOCU100C16 PO; +ESTE1TAB4 PO; +EYE SUPPLEMENT PO; +FERR32TA PO; +GABA-1172 PO; +META28.32 PO; +MIRA3350 PO; +MULTTAB86 PO; +OMEP1CAP73 PO; +SIMETHICONE 40MG/0.6ML DROPS 30ML As Ordered ONE; +TAMS-18 PO
[2025-01-15] MEDS ORDERED: LIDOCAINE 2% 100MG/5ML SDV (FOR ANES.) As Ordered ONE (07:05)
[2025-01-15] MEDS ORDERED: propofoL 200 MG/20 ML VIAL As Ordered ONE (07:05)
[2025-01-15 08:26] VITALS: TEMP 97.6
[2025-01-15 08:54] VITALS: BP 149/70; O2SAT 94
== END 2025-01-15 08:56 | disposition home or self-care (01) ==
LOC: M OPP 07:01
PROVIDERS: ATTEND Internal Medicine Gastroenterology
DX: K29.50 Unspecified chronic gastritis without bleeding (principal); K21.00 Gastro-esophageal reflux disease with esophagitis, without bleeding; K44.9 Diaphragmatic hernia without obstruction or gangrene; K22.89 Other specified disease of esophagus; I25.10 Atherosclerotic heart disease of native coronary artery without angina pectoris; I10 Essential (primary) hypertension; N40.1 Benign prostatic hyperplasia with lower urinary tract symptoms; R33.9 Retention of urine, unspecified; I65.29 Occlusion and stenosis of unspecified carotid artery; E78.00 Pure hypercholesterolemia, unspecified; Z86.718 Personal history of other venous thrombosis and embolism; Z79.899 Other long term (current) drug therapy; Z79.82 Long term (current) use of aspirin; Z95.1 Presence of aortocoronary bypass graft; Z79.02 Long term (current) use of antithrombotics/antiplatelets; Z91.040 Latex allergy status; Z87.891 Personal history of nicotine dependence

== ENCOUNTER → 2025-06-10 | Outpatient (CLI) | payer MEDICARE, OTHER ==
[~2025-06-10] MED LIST changes: -EZET10TA21 PO; +EZET10TA57 PO; +LISI40TA10 PO; -LISI40TA4 PO; -SIMETHICONE 40MG/0.6ML DROPS 30ML As Ordered ONE
== END ==
LOC: M RAD 09:26
PROVIDERS: ATTEND Physician Assistant
DX: I65.23 Occlusion and stenosis of bilateral carotid arteries (principal)

== ENCOUNTER 2025-06-30 18:01 | Emergency (ER) | payer MEDICARE, OTHER ==
[~2025-06-30] VITALS: Ht 172.7 cm; Wt 70.5 kg
[2025-06-30 18:06] VITALS: TEMP 98.7
[2025-06-30 19:05] LABS: BASO # 0.0 10^3/uL (0.0-0.2); BASO % 0.5 % (0.0-1.0); EOS # 0.1 10^3/uL (0.0-0.5); EOS % 1.1 % (0.0-3.0); LYMPH # 1.2 10^3/uL (1.5-5.0); LYMPH % 14.2 % (24.0-44.0); MONO # 0.9 10^3/uL (0.0-0.8); MONO % 10.6 % (2.0-8.0); NEUTROPHILS # 6.0 10^3/uL (1.5-8.5); NEUTROPHILS % 73.0 % (36.0-66.0); PLATELET COUNT, AUTOMATED 327 10^3/uL (150-450)
[2025-06-30 19:40] LABS: ALT/SGPT 123.0 U/L (7.0-40); AST/SGOT 59.0 U/L (<34); CALCIUM LEVEL 8.2 MG/DL (8.3-10.6); CARBON DIOXIDE LEVEL 30.0 MMOL/L (20-31); CHLORIDE LEVEL 94.0 MMOL/L (98-107); CREATININE FOR GFR 1.01 MG/DL (0.70-1.30); GLOMERULAR FILTRATION RATE 80.0 (>42); MAGNESIUM LEVEL 1.8 MG/DL (1.8-2.4); POTASSIUM SERUM 2.7 MMOL/L (3.5-5.1); SODIUM LEVEL 134.0 MMOL/L (136-145)
[2025-06-30] MEDS: POTASSIUM CHLORIDE 10MEQ SR TABLET PO ONE ×2 (20:35→22:28)
[2025-06-30] MEDS: KCL 10MEQ/100ML SWI (KRUN) 10 MEQ in IV 1 EA IV ONE (20:36)
[2025-06-30] MEDS ORDERED: HOME MED LIST COMPLETE! XX SCH (22:00)
[2025-06-30] MEDS ORDERED: SPIR-10 PO (23:14)
[2025-06-30 23:15] VITALS: O2SAT 100
[2025-06-30 23:26] VITALS: BP 149/73
== END 2025-06-30 23:33 | disposition home or self-care (01) ==
LOC: M ED 18:01
DX: E87.6 Hypokalemia (principal); I25.10 Atherosclerotic heart disease of native coronary artery without angina pectoris; I10 Essential (primary) hypertension; K21.9 Gastro-esophageal reflux disease without esophagitis; F32.A Depression, unspecified; Z95.1 Presence of aortocoronary bypass graft; Z79.82 Long term (current) use of aspirin; Z79.899 Other long term (current) drug therapy; Z91.040 Latex allergy status